=== PATIENT | male | born 1990 | race African-American/Black ===

== ENCOUNTER 2016-11-23 12:27 | Emergency (ER) | payer OTHER ==
[~2016-11-23] VITALS: Ht 177.8 cm; Wt 78.2 kg
[2016-11-23 12:29] VITALS: BP 130/77
[2016-11-23] MEDS ORDERED: KETOROLAC 30 MG/1 ML IM ONE (14:00)
== END 2016-11-23 13:53 | disposition home or self-care (01) ==
LOC: ED 13:47
DX: S46.811A Strain of other muscles, fascia and tendons at shoulder and upper arm level, right arm, initial encounter (principal); Z87.891 Personal history of nicotine dependence; X58.XXXA Exposure to other specified factors, initial encounter; Y93.89 Activity, other specified; Y92.89 Other specified places as the place of occurrence of the external cause; Y99.8 Other external cause status
CPT/HCPCS: 99283

== ENCOUNTER 2018-06-19 17:23 | Emergency (ER) | payer OTHER ==
[~2018-06-19] VITALS: Ht 177.8 cm; Wt 78.0 kg
[2018-06-19 17:38] VITALS: BP 121/80
== END 2018-06-19 20:24 | disposition home or self-care (01) ==
LOC: ED 19:07
DX: S86.012A Strain of left Achilles tendon, initial encounter (principal); W21.01XA Struck by football, initial encounter; Y93.61 Activity, american tackle football; Y92.321 Football field as the place of occurrence of the external cause; Y99.8 Other external cause status
CPT/HCPCS: 29515; 99284